=== PATIENT | female | born 1945 | race Caucasian/White ===

== ENCOUNTER 2022-07-21 21:41 | Emergency (ER) | payer MEDICARE ==
[2022-07-21] MEDS: Aspirin 81 MG Tab.Chew PO ONE (22:04)
[2022-07-21] MEDS: Nitroglycerin 0.4 MG Tab.SL SL PRN (22:05)
[2022-07-21 22:59] LABS: TROPONIN I HIGH SENSITIVITY < 4.0 pg/ml (<=60.4)
== END 2022-07-21 23:07 | disposition home or self-care (01) ==
LOC: LB.ED 21:41
DX: R07.89 Other chest pain (principal); Z79.82 Long term (current) use of aspirin
CPT/HCPCS: 36415; 71045; 80053; 83735; 84484; 85025; 85610; 93005; 99285; A9270

== ENCOUNTER 2023-05-25 08:19 | Emergency (ER) | payer MEDICARE ==
[2023-05-25] MEDS ORDERED: Ketorolac 60 MG/2 ML SDV IM ONE (08:50)
[2023-05-25] MEDS: Ketorolac 30 MG/ML SDV IVPUSH ONE (08:51)
[2023-05-25] MEDS ORDERED: predniSONE 10 MG Tab ONE (09:00)
[2023-05-25] MEDS ORDERED: Acetaminophen/HYDROcodone 325-5 MG Tab ONE (09:00)
== END 2023-05-25 09:10 | disposition home or self-care (01) ==
LOC: LB.ED 08:19
DX: M54.42 Lumbago with sciatica, left side (principal); I10 Essential (primary) hypertension; E78.00 Pure hypercholesterolemia, unspecified; K21.9 Gastro-esophageal reflux disease without esophagitis; M19.90 Unspecified osteoarthritis, unspecified site; F17.210 Nicotine dependence, cigarettes, uncomplicated; Z79.82 Long term (current) use of aspirin; Z79.899 Other long term (current) drug therapy
CPT/HCPCS: 96372; 99283; A9270-GY; J1885; J7512